=== PATIENT | male | born 1950 | race Caucasian/White ===

== ENCOUNTER 2017-01-04 23:21 | Observation (INO) | payer MEDICARE, BC ==
[~2017-01-04] VITALS: Ht 177.8 cm; Wt 103.2 kg
--- NOTE | ~2017-01-04 | HP ---
PATIENT: JOVON BRANCH MEDICAL RECORD: [id number] ACCOUNT: [id number] LOCATION:[address] : 48 ADMISSION DATE: 01/05/17 HISTORY AND PHYSICAL EXAMINATION HISTORY OF PRESENT ILLNESS: A 66-year-old gentleman with no known history of coronary artery disease, has a strong family history of coronary artery disease as well as hypertension. He has been having intermittent chest pain, mostly with exertion, occasionally wakes up at bedtime. He has had episode yesterday after eating consistent with postprandial angina, diaphoresis, nausea, relieved promptly with nitroglycerin. ECG showed PACs, otherwise normal. Labs significant for looks like intravascular volume depletion with BUN 22, creatinine 1.4. We were asked to see him concerning his cardiovascular status. PAST MEDICAL HISTORY: 1. History of hypertension. 2. Gastroesophageal reflux disease. ALLERGIES: None known. MEDICATIONS: Include Robaxin 75 t.i.d. p.r.n., Accuretic 20/12.5 two tablets daily, Naprosyn 500 b.i.d., Zantac 300 b.i.d. SOCIAL HISTORY: He is a nonsmoker. Easily takes care of all the ADLs. Tries to walk some, but no vigorous exercise program. REVIEW OF SYSTEMS: The patient reports easy bruising but reports no swollen glands. The patient reports no fever, no night sweats, no significant weight gain, no significant weight loss. No significant exercise tolerance. The patient reports no dry eyes, no irritation, no vision change. Patient reports no difficulty hearing and no ear pain. Patient reports no frequent nose bleeds or nose and sinus problems. Patient reports on arm pain on exertion. No shortness of breath while lying down. No history of heart murmur. Patient reports no cough, no wheezing or coughing up blood. Patient reports no abdominal pain, no vomiting. Normal appetite. No diarrhea and not vomiting blood. No nausea and no constipation. Patient reports no incontinence. No difficulty urinating. No hematuria. No increased frequency. Patient reports no muscle aches. No weakness, no arthralgias, no back pain. No swelling of the extremities. Patient reports no abnormal mole, no jaundice, no rashes. Reports no loss of consciousness. No weakness and no numbness. No seizures, dizziness, or headaches. The patient reports no depression, no sleep disturbance, feeling safe in a relationship and no alcohol abuse. Patient reports on fatigue. Reports no runny nose or sinus pressure. No itching, no hives, and no frequent sneezing. PHYSICAL EXAMINATION: GENERAL: Pleasant gentleman, in no acute distress. VITAL SIGNS: Blood pressure 136/85, pulse 58, occasional extrasystole. HEENT: Normocephalic, atraumatic. NECK: No bruits. HEART: Regular, II/ systolic ejection murmur. LUNGS: Clear. ABDOMEN: Soft, nontender. EXTREMITIES: Pulses well preserved, 2+. No edema. NEUROLOGIC: Grossly intact. HISTORY AND PHYSICAL [id number] JOVON BRANCH DIAGNOSTIC DATA: ECG without acute change, PACs only. IMPRESSION: Acute coronary syndrome. PLAN: For angiography, intervention based on the above. TRANSINT:[id number] Voice Confirmation ID: [id number] DOCUMENT ID: [id number] SILVA RAMIREZ MD CC: [id number] DICTATION DATE: 01/05/17831 PROFESSOR OF PUBLIC ADMINISTRATION: 01/05/1752 ADM IN [facility] [address] [id number]
--- NOTE | ~2017-01-04 | HEMODYNAMI ---
PATIENT:JOVON BRANCH MEDICAL RECORD: [id number] : 46 LOCATION:[address] [id number] AD[facility]ION DATE: 01/05/17 Generatedon:01/05/201711:56 Patient name: JOVON BRANCH Patient #: [id number] SSN: : 1950 Date of study: 01/05/2017 Page: Of Hemodynamic Procedure Report Patient Data Patient Demographics Procedure consent was obtained First Name: JOVON Gender: Male Last Name: JOSE CARLOS : 1950 Patient #: [id number] Age: 66 year(s) Race: Unknown Additional ID: [id number] Contact details [address]: [address] [place] [address] State: [place] City: [place] Zip code: [address] Past Medical History Allergies: No known allergies Admission Admission Data Admission Date: 01/05/2017 Admission Time: 0:50 Room #: D.2124 Lab Results Lab Result Date: 01/05/2017 Lab Result Time: 0:00 Biochemistry Name Units Result Min Max BUN mg/dl 22 --(----)-* 7 18 Creatinine mg/dl 1.4 --(----)*- 0.6 1.3 CBC Name Units Result Min Max Hemoglobin g/dl 14 --(*---)-- 13.5 17.5 Procedure Procedure Types Cath Procedure Diagnostic Procedure [facility] w/Coronaries Aortic Root Angiography PCI Procedure Coronary Stent Initial Miscellaneous Procedures Moderate Sedation up to 15 minutes Procedure Description Procedure Date Procedure Date: 01/05/2017 Procedure Start Time: 11:00 Procedure End Time: 11:54 Procedure Staff Name Function Ajith Lopez MD Performing Physician Rica Sinha RT Scrub Keily Crespo RN Nurse Esha Rosa RT Monitor Procedure Data Cath Procedure Fluoroscopy Diagnostic fluoroscopy Total fluoroscopy Time: time: 12.5 min 12.5 min Diagnostic fluoroscopy Total fluoroscopy dose: dose: 1747 mGy 1747 mGy Contrast Material Contrast Material Type Amount (ml) Isovue 300 234 Entry Location Entry Primary Successful Side Size Upsize Upsize Entry Closure Chambers ccessful Closure Location (Fr) 1 (Fr) 2 (Fr) Remarks Device Remarks Radial Right 6 Fr Mechanical tr artery Short Compression Femoral Right 5 Fr 6 Fr 6 Fr Exoseal artery Long Short Estimated blood loss: 10 ml Diagnostic catheters Device Type Used For End Catheter Placement Cordis 5Fr JL 4.0 Procedure Catheter (MP) Cordis 5Fr 3DRC Catheter Procedure (MP) Diagnostic Infinity 5Fr Procedure AR MOD Catheter Cordis 5Fr Pigtail Ventriculography Catheter (MP) Procedure Complications No complications Procedure Medications Medication Administration Route Dosage Oxygen NC 2 l/min Lidocaine 2% added to field 20 Heparin Flush Bag added to field 2 bags (1000units/500ml NS) 0.9% NaCl I.V. 100 ml/hr Versed I.V. 1 mg Fentanyl I.V. 50 mcg Versed I.V. 1 mg Fentanyl I.V. 50 mcg Radial Cocktail added to field 1 syringe (Verapomil 2mg/Nitro 400mcg/Heparin 1500units) Fentanyl I.V. 50 mcg Heparin Bolus I.V. 4000 units Integrilin (Bolus I.V. 9.5 ml 2mg/ml) Lopressor I.V. 5 mg Plavix P.O. 600 mg Fentanyl I.V. 50 mcg Hemodynamics Rest HGB: 14 (g/dl) Heart Rate: 85 (bpm) Pressure Samples Time Site Value (mmHg) Purpose Heart Use Rate(bpm) 11:16 LV 199/22,123 Snapshot 62 11:16 LV 137/-1,22 Snapshot 63 11:17 AO 143/82(109) Pullback 65 11:17 LV 144/16,20 Pullback 65 Gradients Valve Time Site 1 Site 2 Mean SEP/DFP Peak To Heart Use (mmHg) (sec/min) Peak Rate (mmHg) (bpm) Aortic 11:17 LV AO 1 4 1 65 144/16,20 143/82(109) Calculations Valve P-P Mean Valve Index Valve Source Name Gradient Area Flow (cm2) Aortic 1 1 1 1 Snapshots Pre Cath Intra NCS Post Cath Vital Signs Time Heart Resp SPO2 etCO2 PP1yhkm NIBP (mmHg) Rhythm Pain Sedatio n Rate (ipm) (%) (mmHg) (mmHg) Status Level (bpm) 10:50:06 72 17 100 0 0 192/111(163) NSR 0 (11) 10(A) , No pain 10:55:05 84 14 99 0 0 195/120(170) NSR 0 (11) 10(A) , No pain 10:59:54 71 19 98 0 0 157/107(136) NSR 0 (11) 10(A) , No pain 11:04:29 58 18 98 0 0 120/87(111) NSR 0 (11) 10(A) , No pain 11:09:50 57 13 95 0 0 159/87(123) NSR 0 (11) 9(A) , No pain 11:14:37 61 16 97 0 0 117/77(102) NSR 0 (11) 9(A) , No pain 11:19:18 67 17 98 0 0 133/85(109) NSR 0 (11) 9(A) , No pain 11:24:00 73 19 98 0 0 138/92(112) NSR 0 (11) 9(A) , No pain 11:29:26 92 17 99 0 0 165/102(156) NSR 0 (11) 10(A) , No pain 11:35:08 65 19 98 0 0 199/116(163) NSR 0 (11) 10(A) , No pain 11:40:03 59 13 98 0 0 182/116(153) NSR 0 (11) 10(A) , No pain 11:44:58 63 16 98 0 0 164/102(141) NSR 0 (11) 10(A) , No pain 11:49:36 60 12 98 0 0 139/106(121) NSR 0 (11) 10(A) , No pain 11:54:19 56 19 96 0 0 135/87(117) NSR 0 (11) 10(A) , No pain Medications Time Medication Route Dose Verified Delivered Reason Note s Effectiveness by by 10:50:14 Oxygen NC 2 l/min 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 anesthetic field MD SIMEON 10:51:58 Heparin Flush added 2 bags Ajith Canseco used for Bag to [facility] procedure (1000units/500ml field MD SIMEON NS) 10:52:21 0.9% NaCl I.V. 100 Ajith Buffie Per physician ml/hr [facility] Crespo RN, MD 10:57:45 Versed I.V. 1 mg Ajith Buffie for sedation [facility] Crespo RN, MD 10:57:52 Fentanyl I.V. 50 mcg Ajith Buffie for sedation [facility] Crespo RN, MD 11:00:04 Radial Cocktail added 1 Ajith Buffie wast ed, (Verapomil to syringe [facility] Crespo RN radial 2mg/Nitro field SIMEON loop 400mcg/Heparin 1500units) 11:04:10 Versed I.V. 1 mg Ajith Buffie for sedation [facility] Crespo RN, MD 11:04:14 Fentanyl I.V. 50 mcg Ajith Buffie for sedation [facility] Crespo RN, MD 11:09:59 Fentanyl I.V. 50 mcg Ajith Buffie for sedation [facility] Crespo RN, MD 11:15:33 Fentanyl I.V. 50 mcg Ajith Buffie for sedation [facility] Crespo RN, MD 11:21:57 Heparin Bolus I.V. 4000 Ajith Dennisie for veri fied units [facility] Crespo RN anticoagulation with dr MD last 11:23:04 Integrilin I.V. 9.5 ml Ajith Buffie for wast ed (Bolus 2mg/ml) [facility] Crespo RN antiplatelet 0.5 ml MD therapy of vial 11:30:03 Lopressor I.V. 5 mg Ajith Jeannieie Per physician [facility] Crespo RN, MD 11:54:24 Plavix P.O. [address] for [facility] Crespo RN antiplatelet therapy Procedure Log Time Note 10:25:22 Rica Counts RT(R) sent for patient. Start room use. 10:25:24 Time tracking: Call back 10:25:27 Plan of Care:Hemodynamics will remain stable., Cardiac rhythm will remain stable., Comfort level will be maintained., Respiratory function will remain adequate., Patient/ family verbilizes understanding of procedure., Procedure tolerated without complication., Recovers from procedure without complications.. 10:39:26 Patient received from Med II to CCL 1 Alert and oriented. Tansferred to table in Supine position. 10:47:11 Warm blankets applied, and ana paula hugger turned on for patient comfort. 10:47:11 Correct patient and procedure confirmed by team. 10:47:13 Signed procedure consent form obtained from patient. 10:47:14 ECG and BP/O2 sat monitors applied to patient. 10:47:14 Vital chart was started 10:50:14 Oxygen 2 l/min NC was administered by Keily Crespo RN; used for procedure; 10:51:51 Lidocaine 2% 20ml vial added to field was administered by Ajith Lopez MD; for local anesthetic; 10:51:58 Heparin Flush Bag (1000units/500ml NS) 2 bags added to field was administered by Ajith Lopez MD; used for procedure; 10:52:21 0.9% NaCl 100 ml/hr I.V. was administered by Keily Crespo RN; Per physician; 10:53:11 Baseline sample Acquired. 10:53:20 Rhythm: sinus rhythm 10:53:22 Full Disclosure recording started 10:53:30 H&P Date Dictated: 01/04/2017 Within 30 days and on chart.. 10:53:32 Pre-procedure instructions explained to patient. 10:53:35 Family in waiting room. 10:53:37 Patient NPO since Midnight. 10:53:44 Patient allergic to No known allergies 10:53:49 Is the patient allergic to Iodine/contrast media? No. 10:53:52 Is patient on blood thinner?No 10:53:59 Patient diabetic? No. 10:54:05 Snore? Yes 10:54:07 Sleep apnea? No 10:54:15 Dentures? No ? 10:54:30 Patient pain scale 7/10 ?. 10:54:37 IV patent on arrival in left forearm with 0.9% NaCl at [facility]. 10:55:11 Lab Result : BUN 22 mg/dl 10:55:11 Lab Result : Creatinine 1.4 mg/dl 10:55:11 Lab Result : Hemoglobin 14 g/dl 10:55:16 Lab results completed and on chart. 10:55:19 Right Radial & Right Groin area was prepped with chlora-prep and draped in sterile fashion 10:55:21 Alarms reviewed by Keara Bryan 10:55:22 Physician paged 10:55:23 Physician arrived 10:55:58 Use device set Radial Dx 10:56:11 --------ALL STOP TIME OUT------ 10:56:12 Final Timeout: patient, procedure, and site verified with staff and physician. All members of the team are in agreement. 10:56:15 Right Radial & Right Groin site verified by team. 10:56:20 Sedation plan: IV Moderate Sedation Versed, Fentanyl 10:57:38 Acist Syringe opened to sterile field. 10:57:38 Medline Cath Pack opened to sterile field. 10:57:39 Bag Decanter opened to sterile field. 10:57:39 Terumo 6Fr Slender Glidesheath opened to sterile field. 10:57:40 St Boyd 260cm J .035 wire opened to sterile field. 10:57:40 Acist Hand Control opened to sterile field. 10:57:41 Acist Manifold opened to sterile field. 10:57:41 Tegaderm 4 x 4 opened to sterile field. 10:57:42 MBrace Wrist Support opened to sterile field. 10:57:45 Versed 1 mg I.V. was administered by Keily Crespo RN; for sedation; 10:57:52 Fentanyl 50 mcg I.V. was administered by Keily Crespo RN; for sedation; 10:58:18 Zero performed for pressure channel P1 10:58:27 Zero performed for pressure channel P1 10:59:45 Procedure started. 11:00:02 Local anesthetic to right radial artery with Lidocaine 2% by Ajith Lopez MD.INITIAL ACCESS ONLY 11:00:04 Radial Cocktail (Verapomil 2mg/Nitro 400mcg/Heparin 1500units) 1 syringe added to field was administered by Keily Crespo RN; ; wasted, radial loop 11:00:15 A 6 Fr Short sheath was inserted into the Right Radial artery 11:00:21 Zero performed for pressure channel P1 11:04:10 Versed 1 mg I.V. was administered by Keily Crespo RN; for sedation; 11:04:14 Fentanyl 50 mcg I.V. was administered by Keily Crespo RN; for sedation; 11:05:25 Terumo 5Fr Beaufort Sheath opened to sterile field. 11:05:30 Use device set Multipack Set 11:05:32 Diagnostic Infinity 5Fr Multipack catheter opened to sterile field. 11:05:48 Local anesthetic to right femoral artery with Lidocaine 2% by Ajith Lopez MD.ADDITIONAL ACCESS 11:06:07 A 5 Fr sheath was inserted into the Right Femoral artery 11:07:39 A Cordis 5Fr JL 4.0 Catheter (MP) was advanced over the wire and used for Procedure. 11:07:47 LCA angiography performed. 11:09:59 Fentanyl 50 mcg I.V. was administered by Keily Crespo RN; for sedation; 11:10:36 Catheter removed. 11:10:45 A Cordis 5Fr 3DRC Catheter (MP) was advanced over the wire and used for Procedure. 11:12:16 Catheter removed. 11:12:46 A Diagnostic Infinity 5Fr AR MOD Catheter was advanced over the wire and used for Procedure. 11:14:47 Catheter removed. 11:15:03 A Cordis 5Fr Pigtail Catheter (MP) was advanced over the wire and used for Ventriculography. 11:15:33 Fentanyl 50 mcg I.V. was administered by Keily Crespo RN; for sedation; 11:16:09 LV angiography performed. 11:18:28 Aortic Root visualized 11:18:33 Catheter removed. 11:21:57 Heparin Bolus 4000 units I.V. was administered by Keily Crespo RN; for anticoagulation; verified with dr last 11:22:27 Proceeding to intervention. 11:22:57 Sheath removed intact; hemostasis achieved with Mechanical Compression to the Right Radial artery. 11:23:04 Integrilin (Bolus 2mg/ml) 9.5 ml I.V. was administered by Keily Crespo RN; for antiplatelet therapy; wasted 0.5 ml of vial 11:24:05 Sheath upsized to a 6 Fr Long. 11:24:23 Cordis 6FR XBLAD 3.5 guide catheter opened to sterile field. 11:24:24 Terumo 6Fr Beaufort Destination Sheath opened to sterile field. 11:24:25 Terumo TR Band Large opened to sterile field. 11:24:32 6 Fr xblad guide catheter was inserted over the wire 11:25:44 Engle Whisper J 300cm 0.014 guide wire opened to sterile field. 11:25:45 Terumo 6Fr Beaufort Sheath opened to sterile field. 11:25:45 Merit BasixCompak Inflation Kit opened to sterile field. 11:26:34 Quick Combo opened to sterile field. 11:27:10 quick combo pads placed 11:28:05 Inflation number: 1 A Toomsuba Sci Putnam 3.0 X 15 balloon was prepped and advanced across the Mid LAD, then inflated to 8 HENRIETTA for 0:20 (min:sec). 11:29:19 Inflation number: 1 The Toomsuba Sci Putnam 3.0 X 15 balloon was reinflated across the Prox LAD, to 10 HENRIETTA for 0:24 (min:sec). 11:30:03 Lopressor 5 mg I.V. was administered by Kiely Crespo RN; Per physician; 11:31:49 Toomsuba Sci Choice PT Extra Support J 300cm .014 gu opened to sterile field. 11:32:05 guide wire exchanged 11:33:12 Balloon removed over the wire. 11:33:43 Inflation number: 2 A Toomsuba Sci Putnam 3.0 X 15 balloon was prepped and advanced across the Mid LAD, then inflated to 12 HENRIETTA for 0:17 (min:sec). 11:34:17 Inflation number: 3 The Toomsuba Sci Putnam 3.0 X 15 balloon was reinflated across the Mid LAD, to 14 HENRIETTA for 0:19 (min:sec). 11:34:47 Inflation number: 2 The Toomsuba Sci Putnam 3.0 X 15 balloon was reinflated across the Prox LAD, to 14 HENRIETTA for 0:16 (min:sec). 11:35:54 Balloon removed over the wire. 11:38:24 Inflation Number: 4 A Remer OTW 3.0 x 18 stent was prepped and advanced across the Mid LAD. The stent was deployed at 14 HENRIETTA for 0:26 (min:sec). 11:38:29 Stent catheter was removed intact over wire. 11:41:36 Inflation Number: 5 A Remer OTW 3.0 x 12 stent was prepped and advanced across the Mid LAD. The stent was deployed at 14 HENRIETTA for 0:22 (min:sec). 11:42:02 Stent catheter was removed intact over wire. 11:44:38 Inflation Number: 3 A Guilherme OTW 3.5 x 15 stent was prepped and advanced across the Prox LAD. The stent was deployed at 14 HENRIETTA for 0:15 (min:sec). 11:46:46 Stent catheter was removed intact over wire. 11:46:48 Wire removed. 11:46:48 Guide catheter removed. 11:46:57 Cordis 6Fr Exoseal opened to sterile field. 11:50:07 St Boyd Femstop Arch Gold opened to sterile field. 11:50:50 Sheath upsized to a 6 Fr Short. 11:50:50 Sheath removed intact; hemostasis achieved with Exoseal to the Right Femoral artery. 11:50:58 Procedure ended.(Physican Out) 11:51:17 Fluoroscopy time 12.50 minutes. 11:51:26 Fluoroscopy dose: 1747 mGy 11:51:26 Flurop Dose total: 1747 11:51:54 Contrast amount:Isovue 300 234ml. 11:51:57 Sharps counted by scrub and verified by R.N. 11:53:18 Femstop placed over the right femoral artery at 120 mmHg. Hemostasis achieved. 11:53:29 Post-procedure physical assessment completed. ASA score P 3 - A patient with severe systemic disease as per Ajith Lopez MD. 11:53:37 Post procedure rhythm: sinus rhythm 11:53:41 Estimated blood loss: 10 ml 11:53:43 Post procedure instruction explained to patient.Patient verbalizes understanding. 11:54:03 Procedure type changed to Cath procedure, Diagnostic procedure, LHC, LHC w/Coronaries, Aortic Root Angiography, PCI procedure, Coronary Stent Initial, Miscellaneous Procedures, Moderate Sedation up to 15 minutes 11:54:05 Procedure and supply charges have been captured, reviewed, submitted and are correct. 11:54:24 Plavix 600 mg P.O. was administered by Keily Crespo RN; for antiplatelet therapy; 11:54:29 Procedure Complication : No complications 11:54:32 Vital chart was stopped 11:54:33 See physician's report for complete and final results. 11:54:35 Report given to [facility] II. 11:54:40 Patient transfered to [facility] with Bed. 11:54:43 Procedure ended. 11:54:43 Full Disclosure recording stopped 11:54:46 End room use (Document Last) Intervention Summary Intervention Notes Time ActionType Lesion and Equipment Action# Pressure Duration Attributes Used 11:28:05 Inflate Mid LAD Toomsuba 1 8 00:20 balloon Sci Putnam 3.0 X 15 balloon 11:29:19 Reinflate Prox LAD Toomsuba 1 10 00:24 balloon Sci Putnam 3.0 X 15 balloon 11:33:43 Inflate Mid LAD Toomsuba 2 12 00:17 balloon Sci Putnam 3.0 X 15 balloon 11:34:17 Reinflate Mid LAD Toomsuba 3 14 00:19 balloon Sci Putnam 3.0 X 15 balloon 11:34:47 Reinflate Prox LAD Toomsuba 2 14 00:16 balloon Sci Putnam 3.0 X 15 balloon 11:38:24 Place stent Mid LAD Guilherme OTW 4 14 00:26 3.0 x 18 stent 11:41:36 Place stent Mid LAD Remer OTW 5 14 00:22 3.0 x 12 stent 11:44:38 Place stent Prox LAD Remer OTW 3 14 00:15 3.5 x 15 stent Device Usage Item Name Manufacture Quantity Catalog Number Hospital Part Current Min imal Lot# / Charge Number Stock Stock Serial# Code Acist Acist 1 24399 478139 344870 704179 20 Syringe Medical Systems Inc Medline Cardinal 1 [id number] 035694 65893 676679 5 Cath Pack Health Bag Microtek 1 2002S 393876 64680 077308 5 Green Dot Corporation Inc. Terumo 6Fr Terumo 1 [id number] 934624 454924 086683 [address] [facility] Boyd 1 949456 934862 030745 864790 30 260cm J .035 wire Acist Hand Acist 1 75799 784555 169826 646967 5 Agora Shopping Medical Systems Inc Acist Acist 1 07179 581287 596466 008000 5 iStyle Inc. Medical Systems Inc Tegaderm 4 3M 1 1626W 035332 102840 182355 5 x 4 MBrace Advanced 1 140-0250-00 966535 41262 067767 5 Wrist Vascular Support Dynamics Terumo 5Fr Terumo 1 AMZ720 030230 201907 250111 40 Beaufort Sheath Diagnostic Cardinal 1 IL6515 889109 59627 814859 30 Infinity Health 5Fr Multipack catheter Cordis 5Fr Cardinal 1 745728 5 JL 4.0 Health Catheter (MP) Cordis 5Fr Cardinal 1 534871 5 3DRC Health Catheter (MP) Diagnostic Cardinal 1 [id number] 986704 896243 270347 15 Infinity Health 5Fr AR MOD Catheter Cordis 5Fr Cardinal 1 368758 5 Pigtail Health Catheter (MP) Cordis 6FR Cardinal 1 [id number] 941582 553552 059166 10 XBLAD 3.5 Health guide catheter Terumo 6Fr Terumo 1 RSR01 540696 22284 366697 5 Beaufort Destination Sheath Terumo TR Terumo 1 [id number] 115517 144630 896614 40 Band Large Engle Engle 1 [id number] 923406 344075 482945 5 Whisper J Vascular 300cm 0.014 guide wire Terumo 6Fr Terumo 1 DLA035 479117 852203 648161 40 Beaufort Sheath [facility] 1 [id number] 471635 030726 572450 15 Greencart Medical Inflation Kit Quick Combo Edge Systems 1 [id number] 628452 588862 873164 5 Toomsuba Sci Toomsuba 2 [id number] 409753 255045 675499 1 [id number] Lu[employer] Solutions [id number] 3.0 X 15 balloon Toomsuba Sci Toomsuba 1 [id number] 312817 056418 354976 5 Choice Scientific Extra Support J 300cm .014 gu Remer OTW Medtronic 1 [id number] 082370 4923557 261876 5 [id number] 3.0 x 18 stent Remer OTW Medtronic 1 [id number] 559529 672969 707223 5 [id number] 3.0 x 12 stent Remer OTW Medtronic 1 [id number] 255037 0466863 499393 5 [id number] 3.5 x 15 stent Cordis 6Fr Cardinal 1 EX600 927518 121761 681226 [address] [facility] [address] [facility] St Boyd 1 [id number] 021299 577835 736057 5 Femstop Arch Gold Signature Audit Edmond Stage Time Signature Unsigned Intra-Procedure 01/05/2017 Esha Rosa 11:56:28 AM RT(R) Signatures Monitor : Esha Rosa Signature : RT Date : Time : [facility] [address] [id number]
--- NOTE | ~2017-01-04 | DS ---
PATIENT:JOVON BRANCH :46 MEDICAL RECORD: [id number] DISCHARGE SUMMARY ADMISSION DATE: 01/05/17 DISCHARGE DATE: 01/06/17 DATE OF ADMISSION: 01/05/2017. DATE OF DISCHARGE: 01/06/2017. PROBLEMS: 1. Acute coronary syndrome. 2. Hypertension. PROCEDURES PERFORMED: 1. Left heart catheterization. 2. Intervention to the LAD. BRIEF HISTORY AND HOSPITAL COURSE: A 66-year-old gentleman admitted with classic unstable angina, underwent intervention to the LAD, had residual disease of the circumflex. We will plan for discharge home in good condition. ACTIVITY: As tolerated. DIET: AHA diet. Plan for intervention to the circumflex at a later date. TRANSINT:[id number] Voice Confirmation ID: [id number] DOCUMENT ID: [id number] SILVA RAMIREZ MD CC: [id number] DICTATION DATE: 01/06/17828 SOLAR PHOTOVOLTAIC CREW LEAD: 01/06/17 1153 DIS IN 01/06/17 [id number] [place] [id number]
--- NOTE | ~2017-01-04 | OP ---
PATIENT NAME: JOVON BRANCH MEDICAL RECORD: [id number] :46 LOCATION:D. D.2124 ADMISSION DATE:01/05/17 SURGEON: SILVA RAMIREZ MD DATE OF OPERATION: 01/05/2017 PROCEDURE: Left heart catheterization, selective coronary angiography, aortic root injection, right femoral artery approach. CATHETERS: A 5-Italian sheath, 5/4 left and right Bentley, 5/4 pig. The procedure was well tolerated. The patient returned to the kim. Sheath removed. FemoStop was placed. FINDINGS: 1. Left ventriculography in 30-degree ROSALES view: Normal wall motion, normal systolic function. 2. Aortic root injection was performed to find the ostium of the right coronary and this showed only the left system filling. 3. LEFT MAIN: Left main is free of disease. 4. LAD: LAD has marked diffuse stenosis up to 90% in its lpbzugvb-is-uty portion. 5. Circumflex: Circumflex is a left dominant system. Down the distal PDA, it has probably 80% stenosis. 6. RIGHT CORONARY ARTERY: Unable to cannulate directly, totally occluded. INTERVENTION: A 5-Italian sheath was exchanged for a long 6-Italian sheath. XB LAD guiding catheter provided good guide catheter support followed by a Whisper wire, it was placed across diffusely severely diseased LAD down to distal portion of this vessel, followed by a 3.0 [place] balloon, which were used as an exchange wire and exchanged the Whisper wire for a PT extra-support wire. Next, the balloon was taken up and down the ogfqycnk-nq-jal LAD up to 14 atmospheres pre-deployment. Stents were placed in the following fashion: Distally, a 3.0 x 18mm [place] drug-eluting stent was inflated up to 14 atmospheres, mid 12mm Guilherme drug-eluting stent was up to 14 atmospheres, and finally a 3.5 x 15 mm Guilherme drug-eluting stent up to 14 atmospheres. Final angiography shows excellent resolution of diffuse 80-90 percent stenosis, no significant residual. There was a snowplow in the small diagonal causing residual pain. Plavix was loaded in the lab. Integrilin was used during the case. We will plan for intervention to the OM at a later date. TRANSINT:[id number] Voice Confirmation ID: [id number] DOCUMENT ID: [id number] SILVA RAMIREZ MD CC: [id number] DICTATION DATE: 01/05/17 1159 ATHLETIC TURF WORKER: 01/05/17 1318 ADM IN [place] [id number] [place] [id number]
[2017-01-04 23:56] LABS: ALBUMIN 3.5 g/dL (3.4-5.0); ALKALINE PHOSPHATASE 72 U/L (46-116); ALT (SGPT) 20 U/L (10-68); BILIRUBIN - TOTAL 0.32 mg/dL (0.2-1.3); CALC OSMOLALITY 277 mosm/kg (275-300); CALCIUM 8.5 mg/dL (8.5-10.1); CARBON DIOXIDE 28.4 mmol/L (21.0-32.0); CHLORIDE - SERUM 102 mmol/L (98-107); CREATININE - SERUM 1.4 mg/dL (0.6-1.3); GLUCOSE 119 mg/dL (74-106); POTASSIUM - SERUM 3.2 mmol/L (3.5-5.1); PROTEIN - SERUM 6.8 g/dL (6.4-8.2); SODIUM 137 mmol/L (136-145); UREA NITROGEN 22 mg/dL (7-18); eGFR NON AFRICAN AMERICAN 53 mL/min (90-120)
[2017-01-04 23:58] LABS: BASOPHILS 0.1 % (0-2); EOSINOPHILS 5.4 % (0-7); HEMATOCRIT 40.8 % (42.0-54.0); IMMATURE GRANULOCYTES 0.3 % (0-5); MCH 29.5 pg (26.0-34.0); MCHC 34.3 g/dL (31.0-37.0); MCV 86.1 fL (80.0-100.0); MEAN PLATELET VOLUME 13.4 fL (7.4-10.4); NEUTROPHILS 56.2 % (40-80); PLATELET COUNT 152 10x3/uL (130-400); RBC 4.74 10x6/uL (4.20-6.10); RDW 12.8 % (11.5-14.5)
[2017-01-05 00:06] LABS: CHOL - HDL RATIO 3.9 ratio (2.3-4.9); CHOLESTEROL, TOTAL 152 mg/dL (0-200); CKMB 0.9 U/L (0.0-3.6); CREATINE KINASE 82 UL (21-232); HDL CHOLESTEROL 39 mg/dL (32-96); LDL CHOLESTEROL 69 mg/dL (0-100); LDL-HDL RATIO 1.8 ratio (1.5-3.5); TRIGLYCERIDE 224 mg/dL (30-200); TROPONIN-I 0.034 ng/mL (0.000-0.060)
--- NOTE | 2017-01-05 01:30 | NUR ---
PT ARRIVES TO FLOOR VIA WC FROM ER ACCOMPANIED BY ER NURSE AND PT'S SPOUSE. MEDICATIONS RECONCILED AT THE BEDSIDE. PLACED ON TELE, NSR ON MONITOR, HR 80'S. ADMISSION ASSESSMENT AND HISTORY COMPLETED. UNIT ROUTINES AND PROTOCOLS DISCUSSED WITH PT AND HIS SPOUSE, UNDERSTANDING VERBALIZED. CALL LIGHT PLACED WITHIN REACH. WILL CONT TO MONITOR.
[2017-01-05] MEDS ORDERED: ROBAXIN-750750 MG PO (01:58)
[2017-01-05] MEDS ORDERED: NAPROSYN500 MG PO (01:59)
[2017-01-05] MEDS ORDERED: ZANTAC300 MG PO (01:59)
[2017-01-05] MEDS ORDERED: ACCURETIC 20-121 TAB PO (02:00)
--- NOTE | 2017-01-05 02:00 | NUR ---
PT SIGNS CONSENT FOR HEART CATH IN AM AND INSTRUCTED ON BEING NPO UNTIL BEING SEEN BY SUPERVISOR PATCHING. PT AND SPOUSE VERBALIZED UNDERSTANDING.
[2017-01-05 02:04] VITALS: Ht 177.8 cm; Wt 103.2 kg
--- NOTE | 2017-01-05 04:28 | NUR ---
PT RESTING WELL WITHOUT C/O OR DISTRESS NOTED. WILL MONITOR.
[2017-01-05 05:55] VITALS: BP 129/69
--- NOTE | 2017-01-05 07:15 | NUR ---
RECEIVED REPORT. ASSUMED CARE OF PATIENT. CALL LIGHT WITHIN REACH. NO DISTRESS.
[2017-01-05 08:05] VITALS: BP 136/85
[2017-01-05 09:47] LABS: BASOPHILS 0.1 % (0-2); EOSINOPHILS 4.3 % (0-7); HEMATOCRIT 39.4 % (42.0-54.0); HEMOGLOBIN 13.4 g/dL (13.5-17.5); IMMATURE GRANULOCYTES 0.1 % (0-5); LYMPHOCYTES 32.7 % (15-50); MCH 29.5 pg (26.0-34.0); MCV 86.6 fL (80.0-100.0); MEAN PLATELET VOLUME 12.9 fL (7.4-10.4); NEUTROPHILS 54.8 % (40-80); PLATELET COUNT 140 10x3/uL (130-400); RBC 4.55 10x6/uL (4.20-6.10); RDW 12.9 % (11.5-14.5); WBC 6.7 10x3/uL (4.8-10.8)
[2017-01-05 09:55] LABS: ANION GAP 9.9 mmol/L (8-16); CALCIUM 8.2 mg/dL (8.5-10.1); CARBON DIOXIDE 28.7 mmol/L (21.0-32.0); CREATININE - SERUM 1.1 mg/dL (0.6-1.3); POTASSIUM - SERUM 3.6 mmol/L (3.5-5.1)
--- NOTE | 2017-01-05 12:13 | NUR ---
RECEIVED PATIENT BACK FROM RECIPROCATING DRILL OPERATOR. FEMSTOP TO RIGHT GROIN. 3 STENTS TO LAD. HEMATOMA UNDER FEMSTOP ON ARRIVAL FROM RECIPROCATING DRILL OPERATOR, HEMATOMA STABLE PER RECIPROCATING DRILL OPERATOR STAFF. PATIENT ALERT/ORIENTED. FEMALE VISITOR AT BEDSIDE.
--- NOTE | 2017-01-05 13:01 | NUR ---
RESTING IN BED WITH EYES OPEN. NO DISTRESS. STATES HIS LEG SLIGHTLY ACHES. FEMOSTOP TO RIGHT GROIN. NO S/S HEMATOMA BEYOUND PREVIOUSLY IDENTIFIED AREA.
--- NOTE | 2017-01-05 13:38 | NUR ---
PATIENT COMPLAINING OF PAIN TO RIGHT HIP WHERE FEMOSTOP IS IN PLACE. REPOSITIONED PATIENT. INFORMED CHARGE NURSE. FEMOSTOP WILL COME OFF AT 1410.
--- NOTE | 2017-01-05 14:15 | NUR ---
PRESSURE RELEASED FROM FEMOSTOP FROM 38 TO 15. NO BLEEDING AT SITE. PATIENT STATES THE PAIN IS MUCH BETTER AFTER PRESSURE RELEASED. NO DISTRESS. AT BEDSIDE. PERIPHERAL PULSES PATENT.
--- NOTE | 2017-01-05 16:00 | NUR ---
FEMOSTOP REMOVED FROM RIGHT GROIN. NO BLEEDING FROM SITE. 4X4 GAUZE AND TEGADERM APPLIED TO AREA. NO S/S HEMATOMA. PERIPHERAL PULSES PATENT. PATIENTS REMAINS AT BEDSIDE. IV FLUIDS INFUSING ORDERED.
--- NOTE | 2017-01-05 18:00 | NUR ---
RESTING WELL IN BED WITH EYES CLOSED. EASILY AROUSED. IV FLUIDS INFUSING ORDERED. DENIES NEEDS. NO DISTRESS.
--- NOTE | 2017-01-05 19:29 | NUR ---
INITIAL ROUDNS COMPLETED. PT DENIES ANY DISCOMFORT. R GROIN CLEAN,DRY AND INTACT. BRUISING NOTED. AREA SOFT. PALPABLE PEDAL PULSES. WILL CONTINUE TO MONITOR.
[2017-01-05 20:35] VITALS: BP 111/64
--- NOTE | 2017-01-05 22:27 | NUR ---
PT UP TO BR AT 2105 HRS. DENIED ANY DIZZINESS. BACK TO BED WITHOUT INCIDENT. NO CHANGE TO R GROIN NOTED. WILL CONTINUE TO MONITOR. SR UP X2,CALL LIGHT WITHINREACH.
--- NOTE | 2017-01-05 23:58 | NUR ---
NO CHANGES TO R GROIN OR R WRIST NOTED. WILL CONTINUE TO MONITOR.
[2017-01-06 00:08] VITALS: BP 122/74
--- NOTE | 2017-01-06 02:02 | NUR ---
PT RESTING WITH EYES CLOSED. RESP EVEN AND REGULAR. SR UP X2, CALL LIGHT WITHIN REACH.
[2017-01-06 04:37] VITALS: BP 155/78
--- NOTE | 2017-01-06 04:43 | NUR ---
R GROIN SOFT. BRUISED AREA A LITTLE LARGER. R FOOT WARM WITH STRONG PEDAL PULSE. R WRISRT CLEAN,DRY AND INTACT. PT DENIES ANY CP. WILL CONTINUE TO MONITOR.
--- NOTE | 2017-01-06 06:33 | NUR ---
VSS THROUGHOUT NIGHT. SR/SB PER CM PT SENIES ANY DISCOMFORT THIS AM. NEEDS MET; WILL CONTINUE TO MONITOR.
--- NOTE | 2017-01-06 07:57 | NUR ---
IV PATENT. CALL LIGHT IN REACH. PAULETTE NEEDS AT THIS TIME. WILL CONT. PLAN OF CARE.
[2017-01-06 08:00] VITALS: BP 153/83
--- NOTE | 2017-01-06 08:05 | NUR ---
ASSESSMENT DONE. DENIES NEEDS.
[2017-01-06] MEDS ORDERED: ASPIRIN81 MG PO (09:02)
[2017-01-06] MEDS ORDERED: PLAVIX75 MG PO (09:03)
[2017-01-06] MEDS ORDERED: LIPITOR40 MG PO (09:04)
--- NOTE | 2017-01-06 10:15 | NUR ---
DC AND RX GIVEN TO PT
--- NOTE | 2017-01-06 10:23 | NUR ---
DC HOME PER PERSONAL CAR
== END 2017-01-06 10:23 | disposition home or self-care (01) ==
LOC: D.ER 23:21 → OBSVTIME 01-05 00:50 → D.M2 01-05 00:50
PROVIDERS: Family Medicine; ADMIT Internal Medicine Interventional Cardiology
DX: I25.118 Atherosclerotic heart disease of native coronary artery with other forms of angina pectoris (principal); I10 Essential (primary) hypertension; K21.9 Gastro-esophageal reflux disease without esophagitis
CPT/HCPCS: 93458; C9600

== ENCOUNTER 2017-01-22 10:48 | Outpatient (CLI) | payer MEDICARE, BC ==
--- NOTE | ~2017-01-22 | HEMODYNAMI ---
PATIENT:JOVON BRANCH MEDICAL RECORD: [id number] : 46 LOCATION:DGuillermoCAT ADMISSION DATE: 01/22/17 Generatedon:01/22/201713:42 Patient name: JOVON BRANCH Patient #: [id number] SSN: : 1950 Date of study: 01/22/2017 Page: Of Hemodynamic Procedure Report Patient Data Patient Demographics Procedure consent was obtained First Name: JOVON Gender: Male Last Name: JOSE CARLOS : 1950 [facility] Initial: P Age: 66 year(s) Patient #: [id number] Race: Unknown Additional ID: [id number] Contact details [address]: [address] [place] [address] State: [place] City: [place] Zip code: [address] Past Medical History Allergies: No known allergies Admission Admission Data Admission Date: 01/22/2017 Admission Time: 10:48 Procedure Procedure Types Cath Procedure PCI Procedure Coronary Stent Initial Miscellaneous Procedures Moderate Sedation up to 30 minutes Procedure Description Procedure Date Procedure Date: 01/22/2017 Procedure Start Time: 13:06 Procedure End Time: 13:42 Procedure Staff Name Function Ajith Lopez MD Performing Physician Rica Sinha RT Scrub Keily Crespo RN Nurse Babak Coello RT Monitor Procedure Data Cath Procedure Fluoroscopy Diagnostic fluoroscopy Total fluoroscopy Time: time: 13.6 min 13.6 min Diagnostic fluoroscopy Total fluoroscopy dose: dose: 1032 mGy 1032 mGy Contrast Material Contrast Material Type Amount (ml) Isovue 300 169 Entry Location Entry Primary Successful Side Size Upsize Upsize Entry Closure Succes sful Closure Location (Fr) 1 (Fr) 2 (Fr) Remarks Device Remarks Femoral Left 6 Fr Exoseal artery Short Estimated blood loss: 10 ml Procedure Complications No complications Procedure Medications Medication Administration Route Dosage Oxygen NC 2 l/min Lidocaine 2% added to field 20 Heparin Flush Bag added to field 2 bags (1000units/500ml NS) 0.9% NaCl I.V. 100 ml/hr Versed I.V. 1 mg Fentanyl I.V. 50 mcg Versed I.V. 1 mg Fentanyl I.V. 50 mcg Heparin Bolus I.V. 4000 units Versed I.V. 1 mg Fentanyl I.V. 50 mcg Versed I.V. 1 mg Fentanyl I.V. 50 mcg Lopressor I.V. 5 mg Fentanyl I.V. 50 mcg Hemodynamics Rest Heart Rate: 50 (bpm) Snapshots Pre Cath Intra NCS Post Cath Vital Signs Time Heart Resp SPO2 NIBP (mmHg) Rhythm Pain Sedation Rate (ipm) (%) Status Level (bpm) 12:49:03 51 19 99 153/89(109) NSR 0 (11) 10(A) , No pain 12:54:22 54 16 100 149/90(135) NSR 0 (11) 10(A) , No pain 12:58:32 51 18 99 138/89(104) NSR 0 (11) 10(A) , No pain 13:03:39 49 16 94 142/92(107) NSR 0 (11) 10(A) , No pain 13:08:02 56 14 99 141/81(108) NSR 0 (11) 10(A) , No pain 13:12:20 52 15 95 132/79(114) NSR 0 (11) 9(A) , No pain 13:17:25 55 16 99 150/77(120) NSR 0 (11) 10(A) , No pain 13:23:01 73 17 98 184/105(148) NSR 0 (11) 10(A) , No pain 13:27:37 79 17 98 207/111(161) NSR 0 (11) 10(A) , No pain 13:32:24 79 18 98 207/109(152) NSR 0 (11) 10(A) , No pain 13:37:11 59 19 97 192/116(164) NSR 0 (11) 10(A) , No pain 13:41:47 51 17 96 179/124(144) NSR 0 (11) 10(A) , No pain Medications Time Medication Route Dose Verified Delivered Reason Notes Effectiveness by by 12:47:27 Oxygen NC 2 Ajith Buffie used for l/min [facility] Crespo line construction supervisor 12:47:34 Lidocaine 2% added 20ml Ajith Buffie used for to vial [facility] Carlos Crespo RN procedure field SIMEON 12:47:41 Heparin Flush added 2 Ajith Buffie used for Bag to bags [facility] Carlos Crespo RN procedure (1000units/500ml field SIMEON NS) 12:47:49 0.9% NaCl I.V. 100 Ajith Dennisie Per physician ml/hr [facility] Carlos Crespo RN, MD 13:05:03 Versed I.V. 1 mg Ajith Jeannieie for sedation [facility] Carlos Crespo RN, MD 13:05:10 Fentanyl I.V. 50 Ajith Buffie for sedation mcg [facility] Carlos Crespo RN, MD 13:08:42 Versed I.V. 1 mg Ajith Buffie for sedation [facility] Carlos Crespo RN, MD 13:08:46 Fentanyl I.V. 50 Ajith Buffie for sedation [facility] [place] [facility] Crespo RN, MD 13:09:44 Heparin Bolus I.V. 4000 Ajith Buffie for verifi ed units [facility] Carlos Crespo RN anticoagulation with dr MD last 13:17:32 Versed I.V. 1 mg Ajith Buffie for sedation [facility]. Calros Crespo RN, MD 13:17:37 Fentanyl I.V. 50 Ajith Buffie for sedation [facility] [place] [facility] Crespo RN, MD 13:20:32 Versed I.V. 1 mg Ajith Buffie for sedation [facility] Carlos Crespo RN, MD 13:26:35 Fentanyl I.V. 50 Ajith Buffie for sedation [facility] [place] [facility] Crespo RN, MD 13:30:16 Lopressor I.V. 5 mg Ajith Jeannieie Per physician [facility] Crespo RN, MD 13:35:14 Fentanyl I.V. 50 Ajith Dennisie for sedation [facility] [place] [facility] Crespo RN, MD Procedure Log Time Note 12:36:19 Time tracking: Regular hours 12:36:23 Plan of Care:Hemodynamics will remain stable., Cardiac rhythm will remain stable., Comfort level will be maintained., Respiratory function will remain adequate., Patient/ family verbilizes understanding of procedure., Procedure tolerated without complication., Recovers from procedure without complications.. 12:36:52 Rica Counts RT(R) sent for patient. Start room use. 12:47:27 Oxygen 2 l/min NC was administered by Keily Crespo RN; used for procedure; 12:47:34 Lidocaine 2% 20ml vial added to field was administered by Keily Crespo RN; used for procedure; 12:47:41 Heparin Flush Bag (1000units/500ml NS) 2 bags added to field was administered by Keily Crespo RN; used for procedure; 12:47:49 0.9% NaCl 100 ml/hr I.V. was administered by Keily Crespo RN; Per physician; 12:47:53 Vital chart was started 12:48:37 Patient received from Pre/Post Procedure Room to CCL 3 Alert and oriented. Tansferred to table in Supine position. 12:48:39 Warm blankets applied, and ana paula hugger turned on for patient comfort. 12:48:39 Correct patient and procedure confirmed by team. 12:48:41 Signed procedure consent form obtained from patient. 12:48:42 ECG and BP/O2 sat monitors applied to patient. 12:48:47 Baseline sample Acquired. 12:48:53 Rhythm: sinus rhythm 12:48:54 Full Disclosure recording started 12:49:15 H&P Date Dictated: 01/05/2017 Within 30 days and on chart., H&P Addendum completed by physician on day of procedure. (MUST COMPLETE FOR ALL OUTPATIENTS). 12:49:16 Pre-procedure instructions explained to patient. 12:49:19 Family in waiting room. 12:49:21 Patient NPO since Midnight. 12:49:30 Patient allergic to No known allergies 12:49:32 Is the patient allergic to Iodine/contrast media? No. 12:49:34 Was the patient premedicated? Yes 12:49:52 Is patient on blood thinner?Yes 12:49:55 ACC The patient was administered the following blood thiners within the last 24 hours: ACCPlavix 12:50:05 ACC The patient was administered the following blood thiners within the last 24 hours: ACCAspirin 12:50:21 Patient diabetic? No. 12:50:25 Snore? Yes 12:50:35 Sleep apnea? No 12:50:48 IV patent on arrival in left forearm with 0.9% NaCl at [facility]. 12:51:26 Pre procedure: left dorsailis pedis pulse 2+ Normal; easily identifiable; not easily obliterated 12:51:28 Patient pain scale 0/10 ?. 12:51:32 Lab results completed and on chart. 12:51:36 Left groin area was prepped with chlora-prep and draped in sterile fashion 12:51:38 Alarms reviewed by R. N. 12:51:38 Sharps counted by scrub and verified by R.N. 12:51:46 Use device set Femoral PCI 12:51:47 Acist Syringe opened to sterile field. 12:51:47 Acist Hand Control opened to sterile field. 12:51:47 Bag Decanter opened to sterile field. 12:51:48 Medline Cath Pack opened to sterile field. 12:51:48 Terumo 6Fr [place] Sheath opened to sterile field. 12:51:48 St Boyd 260cm J .035 wire opened to sterile field. 12:51:49 Merit BasixCompak Inflation Kit opened to sterile field. 12:51:49 Acist Manifold opened to sterile field. 12:51:50 Tegaderm 4 x 4 opened to sterile field. 12:58:11 Engle Whisper J 300cm 0.014 guide wire opened to sterile field. 12:59:33 Zero performed for pressure channel P1 12:59:38 Zero performed for pressure channel P1 13:01:41 Physician paged 13:04:28 Final Timeout: patient, procedure, and site verified with staff and physician. All members of the team are in agreement. 13:04:30 Left groin site verified by team. 13:04:34 Physical assessment completed. ASA score P 2 - A patient with mild systemic disease as per Ajith Lopez MD. 13:04:37 Sedation plan: IV Moderate Sedation Versed, Fentanyl 13:05:03 Versed 1 mg I.V. was administered by Keily Crespo RN; for sedation; 13:05:10 Fentanyl 50 mcg I.V. was administered by Keily Crespo RN; for sedation; 13:06:51 Procedure started. 13:06:56 Local anesthetic to left femerol artery with Lidocaine 2% by Ajith Lopez MD.INITIAL ACCESS ONLY 13:07:46 A 6 Fr Short sheath was inserted into the Left Femoral artery 13:08:42 Versed 1 mg I.V. was administered by Keily Crespo RN; for sedation; 13:08:46 Fentanyl 50 mcg I.V. was administered by Keily Crespo RN; for sedation; 13:08:54 6 Fr XBLAD 4.0 guide catheter was inserted over the wire 13:09:04 Cordis 6FR XBLAD 4.0 guide catheter opened to sterile field. 13:09:44 Heparin Bolus 4000 units I.V. was administered by Keily Crespo RN; for anticoagulation; verified with dr last 13:11:22 Whisper wire advanced. 13:16:58 Wire removed. unable to cross lesion. 13:17:11 Engle Filer 300cm 0.014 guide wire opened to sterile field. 13:17:32 Versed 1 mg I.V. was administered by Keily Crespo RN; for sedation; 13:17:37 Fentanyl 50 mcg I.V. was administered by Keily Crespo RN; for sedation; 13:18:05 Filer wire advanced. 13:19:18 Wire removed. unable to cross lesion. 13:19:26 Engle Whisper J 300cm 0.014 guide wire opened to sterile field. 13:20:32 Versed 1 mg I.V. was administered by Keily Crespo RN; for sedation; 13:22:05 The [place] OTW 3.0 x 18 stent was advanced then removed because of failure to cross lesion 13:25:07 Inflation number: 1 A [place] Sci [place] 2.5 X 20 balloon was prepped and advanced across the Dist CX, then inflated to 14 HENRIET[place] for 0:18 (min:sec). 13:25:39 Inflation number: 2 The [place] Sci [place] 2.5 X 20 balloon was reinflated across the Dist CX, to 14 [place] for 0:19 (min:sec). 13:26:35 Fentanyl 50 mcg I.V. was administered by Keily Crespo RN; for sedation; 13:28:13 Inflation number: 3 The [place] Sci [place] 2.5 X 20 balloon was reinflated across the Dist CX, to 12 [place] for 0:24 (min:sec). 13:28:36 [place] Sci Choice PT Extra Support J 300cm .014 gu opened to sterile field. 13:29:16 Wire removed. unable to get back-up support 13:29:26 Choice PT ES wire advanced. 13:29:53 Inflation number: 4 The [place] Sci [place] 2.5 X 20 balloon was reinflated across the Dist CX, to 14 [place] for 0:23 (min:sec). 13:30:16 Lopressor 5 mg I.V. was administered by Keily Crespo RN; Per physician; 13:34:36 Balloon removed over the wire. 13:35:14 Fentanyl 50 mcg I.V. was administered by Keily Crespo RN; for sedation; 13:35:19 Inflation Number: 5 A [place] OTW 3.0 x 18 stent was prepped and advanced across the Dist CX. The stent was deployed at 12 [place] for 0:31 (min:sec). 13:35:44 Stent catheter was removed intact over wire. 13:35:44 Wire removed. 13:35:44 Guide catheter removed. 13:35:55 Sheath removed intact; hemostasis achieved with Exoseal to the Left Femoral artery. 13:35:58 Procedure ended.(Physican Out) 13:36:08 Fluoroscopy time 13.60 minutes. 13:36:13 Flurop Dose total: 1032 13:36:13 Fluoroscopy dose: 1032 mGy 13:37:21 Contrast amount:Isovue 300 169ml. 13:37:23 Sharps counted by scrub and verified by R.N. 13:37:24 Insertion/operative site no bleeding no hematoma. 13:37:28 Post-op/insertion site Left Femoral artery dressed using a 4 x 4 and Tegaderm. 13:37:33 Post left femerol artery:stable, clean and dry 13:37:34 Post Procedure Pulses reassessed and unchanged 13:37:39 Post-procedure physical assessment completed. ASA score P 2 - A patient with mild systemic disease as per Ajith Lopez MD. 13:37:41 Post procedure rhythm: unchanged. 13:37:44 Estimated blood loss: 10 ml 13:37:45 Post procedure instruction explained to patient.Patient verbalizes understanding. 13:37:46 Patient needs reinforcement of post procedure teaching. 13:37:58 Procedure type changed to Cath procedure, PCI procedure, Coronary Stent Initial, Miscellaneous Procedures, Moderate Sedation up to 30 minutes 13:38:03 Procedure Complication : No complications 13:38:59 See physician's report for complete and final results. 13:39:06 Cordis 6Fr Exoseal opened to sterile field. 13:39:40 Procedure and supply charges have been captured, reviewed, submitted and are correct. 13:41:49 Vital chart was stopped 13:41:52 Report given to Pre/Post Procedure Room. 13:41:56 Patient transfered to Pre/Post Procedure Room with Stretcher. 13:42:02 Procedure ended. 13:42:02 Full Disclosure recording stopped 13:42:05 End room use (Document Last) Intervention Summary Intervention Notes Time ActionType Lesion and Equipment Action# Pressure Duration Attributes Used 13:22:05 Discard Guilherme OTW Stent 3.0 x 18 stent 13:25:07 Inflate Dist CX [place] 1 14 00:19 balloon Sci [place] 2.5 X 20 balloon 13:25:39 Reinflate Dist CX [place] 2 14 00:19 balloon Sci [place] 2.5 X 20 balloon 13:28:13 Reinflate Dist CX [place] 3 12 00:24 balloon Sci [place] 2.5 X 20 balloon 13:29:53 Reinflate Dist CX [place] 4 14 00:23 balloon Sci [place] 2.5 X 20 balloon 13:35:19 Place stent Dist CX [place] OTW 5 12 00:31 3.0 x 18 stent Device Usage Item Name Manufacture Quantity Catalog Number Hospital Part Current Min imal Lot# / Charge Number Stock Stock Serial# Code Acist Acist 1 26341 256300 599182 450383 20 Syringe Medical Systems Inc Acist Hand Acist 1 06546 431185 162808 671592 5 Control Medical Systems Inc Bag Microtek 1 2002S 924034 18986 093808 5 Octmami Medical Inc. Medline Cardinal 1 [id number] 669190 77240 027273 5 Cath Pack Health Terumo 6Fr Terumo 1 [id number] 694905 539756 838248 [address] St Boyd 1 [id number] 045708 013423 682107 30 260cm J .035 wire Merit Merit 1 [id number] 997687 450053 930795 15 Fantasy Buzzer Medical Inflation Kit Acist Acist 1 81594 742803 960061 552357 5 Manifold Medical Systems Inc Tegaderm 4 3M 1 1626W 724320 945413 966844 5 x 4 Engle Engle 2 [id number] 504308 076447 838948 5 Whisper J Vascular 300cm 0.014 guide wire Cordis 6FR Cardinal 1 [id number] 251356 773842 539071 3 XBLAD 4.0 Health guide catheter Engle Engle 1 [id number] 138430 887944 366886 1 Filer Vascular 300cm 0.014 guide wire Guilherme OTW Medtronic 1 [id number] 409449 8016125 292719 5 [id number] 3.0 x 18 stent [place] Sci Toledo 1 [id number] 573446 385327 859992 1 [id number] Breck[place]ridge Scientific 2.5 X 20 balloon [place] Sci [place] 1 [id number] 167553 026053 477149 5 Choice PT Scientific Extra Support J 300cm .014 gu Cordis 6Fr Cardinal 1 EX600 345327 814147 291951 10 [facility] MOMENTFACE SRO Signature Audit [place] Stage Time Signature Unsigned Intra-Procedure 01/22/2017 Rica 1:42:16 PM Counts RT(R) Signatures Monitor : Babak Coello RT Signature : Date : Time : [place] [id number] [place] [address]
[~2017-01-22 10:48] MED LIST: ACCURETIC 20-121 TAB PO; ASPIRIN81 MG PO; LIPITOR40 MG PO; NAPROSYN500 MG PO; PLAVIX75 MG PO; ROBAXIN-750750 MG PO; ZANTAC300 MG PO
[2017-01-22] MEDS ORDERED: CIALIS10 MG PO (11:04)
[2017-01-22 11:08] VITALS: BP 153/77; BMI 33.0
[2017-01-22 11:23] LABS: BASOPHILS 0.2 % (0-2); EOSINOPHILS 5.2 % (0-7); HEMATOCRIT 41.6 % (42.0-54.0); HEMOGLOBIN 14.2 g/dL (13.5-17.5); IMMATURE GRANULOCYTES 0.3 % (0-5); LYMPHOCYTES 33.7 % (15-50); MCH 29.3 pg (26.0-34.0); MCHC 34.1 g/dL (31.0-37.0); MCV 85.8 fL (80.0-100.0); MEAN PLATELET VOLUME 12.5 fL (7.4-10.4); MONOCYTES 8.9 % (2-11); NEUTROPHILS 51.7 % (40-80); RBC 4.85 10x6/uL (4.20-6.10); RDW 12.5 % (11.5-14.5); WBC 6.2 10x3/uL (4.8-10.8)
[2017-01-22 11:25] LABS: PLATELET COUNT 193 10x3/uL (130-400)
[2017-01-22 11:50] LABS: ANION GAP 11.7 mmol/L (8-16); CALCIUM 9.1 mg/dL (8.5-10.1); CARBON DIOXIDE 29.1 mmol/L (21.0-32.0); CREATININE - SERUM 1.1 mg/dL (0.6-1.3); POTASSIUM - SERUM 3.8 mmol/L (3.5-5.1)
--- NOTE | 2017-01-22 14:06 | NUR ---
1400 RECIEVED TO ROOM VIA STRETCHER FROM ROTOGRAVURE PRESS OPERATOR WITH 6 FR EXOSEAL L/GROIN CDI NO BLEEDING NO HEMATOMA NOTED. INSTRUCTED PATIENT TO KEEP HEAD FLAT ON PILLOW WITH LLE STRAIGHT
--- NOTE | 2017-01-22 14:22 | NUR ---
DR RAMIREZ PRESENT AT BEDSIDE TALKING TO PATIENT AND . VSS NO DISTRESS
--- NOTE | 2017-01-22 14:32 | NUR ---
L/GROIN REMAINS CDI NO BLEEDING NO HEMATOMA NOTED. PULSES PRESENT AND MARKED. VSS WITH CHEST PAIN DENIED
--- NOTE | 2017-01-22 15:00 | NUR ---
PATIENT SLEEPING QUIETLY WITH NO DISTESS NOTED. 6 FR EXOSEAL L/GROIN CDI NO BLEEDING NO HEMATOMA NOTED.
--- NOTE | 2017-01-22 15:30 | NUR ---
1530 L/GROIN TAURUS NO BLEEDING NO HEMATOMA NOTED. VSS WITH FAMILY AT SIDE
--- NOTE | 2017-01-22 16:13 | NUR ---
NO CHANGE IN ASSESSMENT PAIN DENIED WITH L/GROIN CDI
--- NOTE | 2017-01-22 16:53 | NUR ---
VERBAL AND WRITTEN DISCHARGE GONE OVER WITH PATIENT AND BOTH VERBALIZED UNDERSTANDING. L/GROIN REMAINS STABLE NO BLEEDING NOTED.
--- NOTE | 2017-01-22 17:25 | NUR ---
HOB ELEVATED 30 DEGREES. LEFT GROIN 6F EXOSEAL CDI.
--- NOTE | 2017-01-22 17:41 | NUR ---
LEFT HAND PIV D/C'D WITH CATHETER INTACT, BAND AID TO SITE. UP TO BEDSIDE TO GET DRESSED.
--- NOTE | 2017-01-22 17:45 | NUR ---
UP TO RESTROOM TO VOID.
--- NOTE | 2017-01-22 17:51 | NUR ---
TAKEN OUT VIA WHEELCHAIR BY CATH WEIGHT SHIFTER. LEFT FACILITY WITH AND ALL PERSONAL BELONGINGS.
--- NOTE | 2017-01-23 12:40 | OP ---
PATIENT NAME: JOVON BRANCH MEDICAL RECORD: [id number] :46 LOCATION:D.CAT ADMISSION DATE: SURGEON: SILVA RAMIREZ MD DATE OF OPERATION: 01/22/2017 PROCEDURE: PTCA stent to circumflex. DESCRIPTION OF PROCEDURE: A 6-[place] sheath was placed in the left femoral artery. An EBU 4 guiding catheter provided excellent guide catheter support followed by initially was placed with a 300 Whisper wire was placed across the 90% stenosis of the circumflex down this portion of vessel. Predeployment balloon used was a 2.5 x 15 mm Thayer balloon, we also used this is an exchange catheter and changed out for a PT extra support wire. Next stent deployed was a 3.0 x 18 mm Guilherme drug-eluting stent up to 14 atmospheres for 45 seconds. Final injection shows excellent resolution of diffuse 80-90% stenosis, no significant residual. DEOTNE flow was 3 throughout the procedure. The patient was previously on Plavix, heparin was given in the lab. Sheath was closed with ExoSeal device. TRANSINT:[id number] Voice Confirmation ID: [id number] DOCUMENT ID: [id number] SILVA RAMIREZ MD at 1240 CC: [id number] DICTATION DATE: 01/22/17 1342 SCHOOL INSPECTOR: 01/22/17 1411 DEP CLI 01/22/17 [facility] [address] [place] [address]
== END 2017-01-22 17:51 | disposition home or self-care (01) ==
LOC: D.CATH 10:48
PROVIDERS: Internal Medicine Interventional Cardiology
DX: I25.119 Atherosclerotic heart disease of native coronary artery with unspecified angina pectoris (principal); Z01.812 Encounter for preprocedural laboratory examination

== ENCOUNTER → 2018-08-31 08:17 | Outpatient (CLI) | payer MEDICARE, BC ==
[~2018-08-31 08:17] MED LIST changes: +CIALIS10 MG PO
--- NOTE | 2018-09-01 14:00 | EC ---
PATIENT:JOVON BRANCH DATE OF SERVICE: 08/31/18 SEX: M MEDICAL RECORD: [id number] DATE OF : [birth year] [facility] AGE OF PATIENT: 68 ADMISSION DATE: 08/31/18 REFERRING PHYSICIAN: INTERPRETING PHYSICIAN: SILVA RAMIREZ MD ECHOCARDIOGRAM REPORT ECHO CHARGES 4 ECHO COMPLETE Date: 08/31/18 CLINICAL DIAGNOSIS: CAD/MR/TR HX OF HTN ECHOCARDIOGRAPHIC MEASUREMENTS (adult normal given) AC root (d.<3.7cm) 2.9 cm LV Septum d (<1.2 cm> 1.5 cm Valve Excursion 1.7 cm LV Septum (systole) 2.2 cm Left Atria (s.<4.0cm> 4.0 cm LVPW d(<1.2cm) 1.5 cm RV (d.<2.3cm) 3.5 cm LVPW (sytole) 1.9 cm LV diastole(<5.6CM) 5.0 cm MV E-F(>70mm/sec) cm LV systole 3.9 cm LVOT Diameter 1.8 cm MV exc.(>10mm) 1.4 cm Est.ejection fraction (50-75%) % DOPPLER: LVIT cm/sec A 103 cm/sec E 72.0 cm/sec LA cm/sec RVSP 40 mmHg LVOT 167 cm/sec AOP1/2T m/s Asc. Ao 202 cm/sec RVOT 106 cm/sec RA 128 cm/sec PA cm/sec AV Gradient Peak 16.37mmHg AV Mean 8.24 mmHg AV Area 2.2 cm MV Gradient Peak 3.57 mmHg MV Mean 1.14 mmHg MV Area cm COMMENTS: Seat Maker: 2 WILLIAMS SANCHEZ Buttonhole Maker: 3 Dr. Lopez TAPE# PACS Pericardial Effusion N DATE OF SERVICE: Adequate 2D, color flow, spectral Doppler, and M-Mode. LVH is present. LV internal dimensions are normal. Wall motion is normal. EF is greater than 55%. Aortic valve is calcified with minimal restriction of leaflet motion. Peak gradient of 60 mmHg putting this in very mild range. Mild AI is present as well. Left atrium is normal at 4.0 cm. Mitral valve shows no prolapse. Trace MR. Right-sided chambers grossly normal. Trace TR. ECHOCARDIOGRAM REPORT [id number] JOVON BRANCH TRANSINT:[id number] Voice Confirmation ID: [id number] DOCUMENT ID: [id number] SILVA RAMIREZ MD at 1400 CC: [id number] DICTATION DATE: 09/01/18 1259 [employer] ARCHITECT: 09/01/18 1342 DEP CLI 08/31/18 [place] [id number] [place] [id number]
== END | disposition home or self-care (01) ==
LOC: D.HCCARDIO 08:17
PROVIDERS: ATTEND Internal Medicine Interventional Cardiology
DX: I25.10 Atherosclerotic heart disease of native coronary artery without angina pectoris (principal)

== ENCOUNTER → 2019-06-29 10:06 | Outpatient (CLI) | payer MEDICARE, BC | END | disposition home or self-care (01) | LOC: D.CT 10:06 | PROVIDERS: ATTEND Family Medicine | DX: R10.9 Unspecified abdominal pain (principal) ==

== ENCOUNTER → 2019-08-31 08:00 | Outpatient (CLI) | payer MEDICARE, BC ==
[2019-08-31 08:38] LABS: ALBUMIN 4.1 g/dL (3.4-5.0); BILIRUBIN - DIRECT 0.14 mg/dL (0.00-0.30); BILIRUBIN - INDIRECT 0.51 mg/dL (0.00-1.00); BILIRUBIN - TOTAL 0.65 mg/dL (0.2-1.3); CREATININE - SERUM 1.4 mg/dL (0.6-1.3); PROTEIN - SERUM 7.7 g/dL (6.4-8.2)
[2019-09-01 08:11] LABS: ALPHA FETOPROTEIN -(TUMOR MRK) 3.4 ng/mL (0.0-8.3)
[2019-09-01 09:10] LABS: HEPATITIS C ANTIBODY <0.1 S/CO RAT (0.0-0.9)
== END | disposition home or self-care (01) ==
LOC: D.LAB 08:00 → D.MRI 08:00
PROVIDERS: ATTEND Internal Medicine Gastroenterology
DX: K76.9 Liver disease, unspecified (principal)

== ENCOUNTER → 2019-09-14 08:22 | Outpatient (CLI) | payer MEDICARE, BC ==
--- NOTE | 2019-09-15 11:14 | EC ---
PATIENT:JOVON BRANCH DATE OF SERVICE: 09/14/19 SEX: M MEDICAL RECORD: [id number] DATE OF : [birth year] LOCATION:[facility] AGE OF PATIENT: 69 ADMISSION DATE: 09/14/19 REFERRING PHYSICIAN: INTERPRETING PHYSICIAN: SILVA RAMIREZ MD ECHOCARDIOGRAM REPORT ECHO CHARGES 4 ECHO COMPLETE Date: 09/14/19 CLINICAL DIAGNOSIS: HTN/AORTIC STENOSIS/CAD ECHOCARDIOGRAPHIC MEASUREMENTS (adult normal given) AC root (d.<3.7cm) 3.6 cm LV Septum d (<1.2 cm> 1.5 cm Valve Excursion 1.8 cm LV Septum (systole) 1.7 cm Left Atria (s.<4.0cm> 3.9 cm LVPW d(<1.2cm) 1.4 cm RV (d.<2.3cm) 4.1 cm LVPW (sytole) 1.8 cm LV diastole(<5.6CM) 4.1 cm MV E-F(>70mm/sec) cm LV systole 2.4 cm LVOT Diameter 1.8 cm MV exc.(>10mm) 1.1 cm Est.ejection fraction (50-75%) % DOPPLER: LVIT cm/sec A 99.0 cm/sec E 65.0 cm/sec LA cm/sec RVSP 115 mmHg LVOT 122 cm/sec AOP1/2T m/s Asc. Ao 167 cm/sec RVOT 115 cm/sec RA cm/sec PA 139 cm/sec AV Gradient Peak 11.18mmHg AV Mean 6.25 mmHg AV Area 1.8 cm MV Gradient Peak 4.91 mmHg MV Mean 1.15 mmHg MV Area cm COMMENTS: Occupational Therapist Aide: 2 WILLIAMS SANCHEZ Buffet Waiter/Waitress: 3 Dr. Lopez TAPE# PACS Pericardial Effusion N DATE OF SERVICE: Adequate 2D, color flow imaging, spectral Doppler, and M-Mode LVH is present. LV internal dimension is normal. EF 55%. Aortic valve sclerotic with minimally elevated velocity across the aortic valve putting this in a very early range. There is trivial AI. Left atrium is normal at 3.9 cm with no prolapse. Trace MR. Right-sided chambers are grossly normal. Mild TR. TRANSINT:[id number] Voice Confirmation ID: [id number] DOCUMENT ID: [id number] ECHOCARDIOGRAM REPORT [id number] JOVON BRANCH GREGORY A MD at 1114 CC: [id number] DICTATION DATE: 09/14/19 1305 RECREATION ESTABLISHMENT MANAGER: 09/15/19 0023 DEP CLI 09/14/19 [facility] [id number] [place] [id number]
== END | disposition home or self-care (01) ==
LOC: D.HCCECHO 08:22
PROVIDERS: ATTEND Internal Medicine Interventional Cardiology
DX: I10 Essential (primary) hypertension (principal)